=== PATIENT | female | born 1965 | race Caucasian/White ===

== ENCOUNTER → 2016-05-25 | Outpatient (CLI) | payer BC ==
[~2016-05-25] MED LIST: COREG3.125 M1; LISINOPRIL5 MG PO
--- NOTE | ~2016-05-25 | US88 ---
[facility] [place] [facility] TEXT RESULTS PATIENT: SALVATORE ALCARAZ LOCATION: [facility] : 61 UNIT #: [id number] AGE: [address]: Torrey Mackenzie MD SEX: F ORDER DR: [id number] [place] [id number] O MR#: [id number] Acc #: [id number] NAME: SALVATORE ALCARAZ : 1965 SEX: F STUDY DATE/TIME: 05/25/2016 9:40 UNIT: SGUS ROOM: STUDY DESCRIPTION: US Liver or Hepatic Attending Physician: Torrey Mackenzie M.D. Referring Physician: Torrey Mackenzie M.D. Ordering Physician: Torrey Mackenzie M.D. Primary Care Physician: Torrey Mackenzie M.D. MEDICAL IMAGING REPORT This report is preliminary unless electronic signature is present. EXAM Hepatic ultrasound INDICATION Abnormal elevated function tests. TECHNIQUE Prieto-scale and color Doppler sonographic images were obtained through the right upper quadrant. FINDINGS The pancreas appears unremarkable. Liver measures within normal size limits. It is mildly heterogeneous in echotexture but no focal hepatic lesions are seen and there is no intra or extrahepatic biliary dilatation. Gallbladder is contracted with multiple shadowing stones. Right kidney is normal in appearance with no solid or cystic renal masses seen and no hydronephrosis identified. IMPRESSION 1. Mildly heterogeneous hepatic echotexture without focal lesion seen. 2. Cholelithiasis. 1. Dictated by... Ivy Marrero M.D. THIS IS AN ELECTRONICALLY VERIFIED REPORT Ivy Marrero M.D. at 05/25/2016 4:41 PM MARIYA/jw TD: 05/25/2016 13:00 JOB #: [id number] [facility] [place] [facility] RADIOLOGY TEXT RESULTS PATIENT: SALVATORE ALCARAZ LOCATION: [facility] : 61 UNIT #: [id number] AGE: [address]: Torrey Mackenzie MD SEX: F ORDER DR: MEDICAL IMAGING REPORT
== END | disposition home or self-care (01) ==
LOC: SGUS 09:26
DX: R79.89 Other specified abnormal findings of blood chemistry (principal); K80.20 Calculus of gallbladder without cholecystitis without obstruction
CPT/HCPCS: 76705

== ENCOUNTER → 2016-06-27 | Day surgery (SDC) | payer BC ==
--- NOTE | ~2016-06-27 | OR ---
Unit #: [id number] #: [id number] Patient: SALVATORE ALCARAZ [id number] [address] [place], [place] [address] [id number] O MR#: [id number] NAME: SALVATORE ALCARAZ ROOM: Date of Procedure: 06/27/2016 Admission Date: 06/27/2016 Surgeon: Mir Driscoll M.D. : 1965 Attending Physician: Mir Driscoll M.D. Primary Care Physician: Torrey Mackenzie M.D. OPERATIVE REPORT PRIMARY CARE PHYSICIAN Torrey Mackenzie M.D. PREOPERATIVE DIAGNOSIS Colorectal cancer screening in an average-risk patient. PROCEDURE PERFORMED Colonoscopy up to cecum and terminal ileum with excellent preparation and good visualization. POSTOPERATIVE DIAGNOSES Completely normal examination up to cecum and terminal ileum. The quality of the prep was excellent. No polyps, diverticula, or hemorrhoids were seen. RECOMMENDATIONS The patient needs a repeat examination in 10 years. SEDATION USED MAC. DESCRIPTION OF PROCEDURE Following detailed explanation of the potential risks and complications of a colonoscopy, namely perforation, bleeding, and complication related to sedation, the patient was brought to GI lab and laid in the left lateral decubitus position. A digital rectal examination was performed, which was normal. Lubricated tip of the Olympus video colonoscope was inserted through the anus and advanced under direct vision. The scope was advanced past rectosigmoid into descending colon. No diverticula were noticed in this area. The scope tip was then navigated all the way up to cecum with visualization of the ileocecal valve and the appendiceal orifice. Preparation was excellent with good visualization and photodocumentation obtained. Last few inches of the terminal ileum were also visualized after intubation of the ileocecal valve and appeared normal. Successive segments of the colonic mucosa were examined upon withdrawal and appeared unremarkable. There being no polyps, mass lesions, AVMs, or diverticula. The patient did not have any hemorrhoids at the anal verge. The scope was then withdrawn and the patient returned to the recovery area. She tolerated the procedure without any postprocedure complications. Dictated by... Unit #: [id number] #: [id number] Patient: SALVATORE ALCARAZ Romeo Aguilar/james TD: 06/28/2016 02:41 JOB #: [id number] CC: Torrey Mackenzie M.D. OPERATIVE REPORT Page 1 of 1 X Mir Driscoll MD PROCEDURE OPERATIVE NOTE
--- NOTE | ~2016-06-27 | EKG ---
PATIENT: SALVATORE ALCARAZ UNIT #: [id number] Ventricular Rate: 66 BPM Atrial Rate: 66 BPM P-R Interval: 146 ms QRS Duration: 92 ms Q-T Interval: 416 ms QTC Calculation(Bezet): 436 ms P Haywood: 65 degrees Calculated R Haywood: 80 degrees Calculated T Haywood: 47 degrees Diagnosis Line: Normal sinus rhythm Diagnosis Line: Normal ECG Diagnosis Line: No previous ECGs available Diagnosis Line: Confirmed by ARLEEN CHING MD ([id number]) on 06/28/2016 Diagnosis Line: 11:16:55 PM INTERPRETING MD: HUMZA YUNG
[2016-06-27 16:40] LABS: ALBUMIN SERUM 4.4 g/dL (3.5-5.0); BILIRUBIN,TOTAL 1.4 mg/dL (0.2-2.0); BUN/CREATININE RATIO 21.66; CALCIUM SERUM 9.1 mg/dL (8.4-10.2); CREATININE SERUM 0.6 mg/dL (0.6-1.4); GLOM FILT RATE Estimated 104.1 mL/min (>60); POTASSIUM 3.5 mmol/L (3.5-5.1); PROTEIN TOTAL SERUM 6.8 g/dL (6.0-8.3)
== END | disposition home or self-care (01) ==
LOC: COPS 12:04
PROVIDERS: Internal Medicine Gastroenterology
DX: Z12.11 Encounter for screening for malignant neoplasm of colon (principal); I10 Essential (primary) hypertension; I42.9 Cardiomyopathy, unspecified; J45.909 Unspecified asthma, uncomplicated; M54.9 Dorsalgia, unspecified; Z79.899 Other long term (current) drug therapy; K80.20 Calculus of gallbladder without cholecystitis without obstruction; Z98.890 Other specified postprocedural states
CPT/HCPCS: 80053; 93005